=== PATIENT | female | born 1950 | race Caucasian/White ===

== ENCOUNTER 2016-04-22 18:56 | Emergency (ER) | payer OTHER ==
[2016-04-22 19:04] VITALS: PULSE 67; TEMP 98.6
[2016-04-22] MEDS ORDERED: ONDANSETRON 4 MG/2 ML VIAL IVP ONE (19:35)
[2016-04-22] MEDS ORDERED: NS 1,000 ML IV ONE ×2 (19:35→20:21)
[2016-04-22] MEDS ORDERED: METOCLOPRAMIDE 10 MG/2 ML VIAL IVP ONE (19:35)
[2016-04-22 19:40] LABS: % IMMATURE GRANULYOCYTES 0.3 % (0.0-1.1); ABSOLUTE IMMATURE GRANULOCYTES 0.03 10^3/uL (0.00-0.10); ADD DIFF? NO; ADD MORPH? NO; ADD SCAN? NO; ATYPICAL LYMPHOCYTE FLAG 0 (0-99); FRAGMENT RBC FLAG 0 (0-99); HEMATOCRIT 38.8 % (38.0-47.0); HEMOGLOBIN 14.4 g/dL (12.6-16.3); LEFT SHIFT FLG 0 (0-99); LIPEMIA HEMOLYSIS FLAG 90 (0-99); MEAN CELL HEMOGLOBIN 30.3 pg (27.9-34.1); MEAN CELL HEMOGLOBIN CONCENTR. 37.1 g/dL (32.4-36.7); MEAN CELL VOLUME 81.5 fL (81.5-99.8); PLATELET CLUMPS FLAG 10 (0-99); PLATELET COUNT 249 10^3/uL (150-400); RED BLOOD CELL COUNT 4.76 10^6/uL (4.18-5.33); RED CELL DISTRIBUTION WIDTH 12.5 % (11.5-15.2)
--- NOTE | 2016-04-22 19:41 | EDPHY ---
H & P Time Seen by Provider: 04/22/16 19:19 HPI/ROS: CHIEF COMPLAINT: Nausea vomiting HISTORY OF PRESENT ILLNESS: [Patient is a 65-year-old female who presents to the emergency department with extreme nausea and vomiting. Patient reports that she had dental surgery yesterday. She took the course of clindamycin for 45 days prior to the surgery. Yesterday she would underwent abscess treatment and was placed on doxycycline. She took 2 doses yesterday and 1 dose today. She has also been taking Ultram for pain. This morning at 10:00 a.m. she developed significant nausea vomiting. No hematemesis. No abdominal pain. No fevers or chills. No dysuria frequency. REVIEW OF SYSTEMS: My complete review of systems is negative except as mentioned in the HPI. Past Medical/Surgical History: Dental abscess, hyperparathyroidism, chronic fatigue syndrome Past surgical history: Dental abscess repair Smoking Status: Never smoked Physical Exam: Vitals noted GENERAL: Anxious. Appears to be in distress from nausea. Alert. HEENT: Eyes normal to inspection, normal pharynx, no signs of dehydration. Patient's oral wound is healing well. NECK: No thyromegaly, no lymphadenopathy, supple. RESPIRATORY: Clear to auscultation bilaterally, no rales, rhonchi or wheezing. CVS: Regular rate and rhythm, no rubs, murmurs, or gallops. ABDOMEN: Soft, nontender, nondistended, no organomegaly. BACK: Normal to inspection, no CVA tenderness. SKIN: Normal color, no rash, warm, dry. No pallor. EXTREMITIES: No pedal edema, no calf tenderness, no Homans sign or cords, no joint swelling. NEURO/PSYCH: Alert and oriented x3, normal mood and affect. Constitutional: Initial Vital Signs Temperature (C) 37 C 04/22/16 18:57 Heart Rate 67 04/22/16 18:57 Respiratory Rate 20 04/22/16 18:57 Blood Pressure 121/60 H 04/22/16 18:57 O2 Sat (%) 97 04/22/16 18:57 O2 Delivery Mode Room Air Allergies/Adverse Reactions: codeine Allergy (Verified 07/12/15 12:44) Home Medications: Medication Instructions Recorded Modafinil 07/12/15 Doxycycline Hyclate 04/22/16 Naproxen 01/05/17 Ondansetron Odt [Zofran Odt 4 mg 4 mg PO Q4PRN PRN #7 tab 04/22/16 (*)] Promethazine HCl [Phenergan 12.5mg 12.5 mg IL Q6 #7 suppr 04/22/16 supp (*)] traMADol 04/22/16 Medical Decision Making ED Course/Re-evaluation: I discussed the plan with the patient. She was concerned that the "medicine I got before completely knocked me out. I was high." I reviewed the previous record. She received zofran, gi cocktail, ativan and phenergan during her last visit. On recheck the patient was still nauseated. She is given Phenergan 12.5 mg IV. On recheck the patient stated her nausea had improved. She will be discharged with both Zofran and Phenergan p.r.. She was given warnings prior to leaving. She will return with worsening symptoms. She will continue her antibiotics as prescribed by her dentist. Differential Diagnosis: My differential includes but is not limited to nausea, vomiting, allergic reaction to medication, antibiotic reaction, dehydration, electrolyte abnormality, sugar abnormality - Data Points Laboratory Results: Laboratory Results 04/22/16 19:25 04/22/16 19:25 04/22/16 19:25 WBC 9.15 10^3/uL (3.80-9.50) RBC 4.76 10^6/uL (4.18-5.33) Hgb 14.4 g/dL (12.6-16.3) Hct 38.8 % (38.0-47.0) MCV 81.5 fL (81.5-99.8) MCH 30.3 pg (27.9-34.1) MCHC 37.1 H g/dL (32.4-36.7) RDW 12.5 % (11.5-15.2) Plt Count 249 10^3/uL (150-400) MPV 9.0 fL (8.7-11.7) Neut % (Auto) 79.9 H % (39.3-74.2) Lymph % (Auto) 14.0 L % (15.0-45.0) [place] % (Auto) 5.0 % (4.5-13.0) Eos % (Auto) 0.5 L % (0.6-7.6) Baso % (Auto) 0.3 % (0.3-1.7) Nucleat RBC Rel Count 0.0 % (0.0-0.2) Absolute Neuts (auto) 7.30 H 10^3/uL (1.70-6.50) Absolute Lymphs (auto) 1.28 10^3/uL (1.00-3.00) Absolute Monos (auto) 0.46 10^3/uL (0.30-0.80) Absolute Eos (auto) 0.05 10^3/uL (0.03-0.40) Absolute Basos (auto) 0.03 10^3/uL (0.02-0.10) Absolute Nucleated RBC 0.00 10^3/uL (0-0.01) Immature Gran % 0.3 % (0.0-1.1) Immature Gran # 0.03 10^3/uL (0.00-0.10) Sodium 129 L mEq/L (134-144) Potassium 4.3 mEq/L (3.5-5.2) Chloride 94 L mEq/L (97-110) Carbon Dioxide 23 mEq/l (22-31) Anion Gap 12 mEq/L (8-16) BUN 13 mg/dL (7-23) Creatinine 0.6 mg/dL (0.6-1.0) Estimated GFR > 60 Glucose 97 mg/dL (70-100) Calcium 9.9 mg/dL (8.5-10.4) Medications Given: Discontinued Medications Sodium Chloride (Ns) 1,000 mls @ 0 mls/hr IV ONCE ONE PRN Reason: Wide Open Stop: 04/22/16 19:36 Last Admin: 04/22/16 19:40 Dose: 1,000 mls Sodium Chloride (Ns) 1,000 mls @ 0 mls/hr IV ONCE ONE PRN Reason: Wide Open Stop: 04/22/16 20:22 Last Admin: 04/22/16 20:23 Dose: 1,000 mls Metoclopramide HCl (Reglan Injection) 10 mg IVP EDNOW ONE Stop: 04/22/16 19:36 Last Admin: 04/22/16 19:43 Dose: 10 mg Ondansetron HCl (Zofran) 4 mg IVP EDNOW ONE Stop: 04/22/16 19:36 Last Admin: 04/22/16 19:41 Dose: 4 mg Promethazine HCl (Phenergan Injection) 12.5 mg IVP ONCE ONE Stop: 04/22/16 20:23 Last Admin: 04/22/16 20:24 Dose: 12.5 mg Departure - Departure Disposition: Home, Routine, Self-Care Clinical Impression: Nausea & vomiting Qualifiers: Vomiting type: unspecified Vomiting Intractability: non-intractable Qualifier Code: (R11.2) Nausea with vomiting, unspecified Condition: Good Instructions: Acute Nausea and Vomiting (ED) Referrals: Blanca See [Primary Care Provider] - 3-4 days, if not improved Prescriptions: Promethazine HCl [Phenergan 12.5mg supp (*)] 12.5 mg IL Q6 #7 suppr Ondansetron Odt [Zofran Odt 4 mg (*)] 4 mg PO Q4PRN PRN #7 tab PRN Reason: For Nausea & Vomiting
[2016-04-22 19:51] LABS: ANION GAP 12 mEq/L (8-16); CALCIUM 9.9 mg/dL (8.5-10.4); CARBON DIOXIDE 23 mEq/l (22-31); CHLORIDE 94 mEq/L (97-110); CREATININE 0.6 mg/dL (0.6-1.0); GLOMERULAR FILTRATION RATE > 60; GLUCOSE 97 mg/dL (70-100); POTASSIUM 4.3 mEq/L (3.5-5.2); SODIUM 129 mEq/L (134-144)
[2016-04-22] MEDS ORDERED: PROMETHAZINE HCL 25 MG/ML VIAL IVP ONE (20:22)
[2016-04-22] MEDS ORDERED: ONDANSETRON 4MG PREPACK#2 BTL TAKEHOME ONE (22:17)
[2016-04-22 22:22] VITALS: BP 120/82; RESP 16; O2SAT 98
== END 2016-04-22 22:22 | disposition home or self-care (01) ==
DX: R11.2 Nausea with vomiting, unspecified (principal)
CPT/HCPCS: 96361; 96374; 96375; 99284; J2405; J2550; J2765

== ENCOUNTER → 2016-05-04 | Outpatient (CLI) | payer OTHER ==
--- NOTE | 2016-05-04 15:18 | NM ---
Nuclear Medicine Preoperative Sestamibi Injection Before Parathyroidectomy Clinical History: 65-year-old female presenting preoperatively before a parathyroidectomy. FINDINGS: 9.8 mCi of IV technetium 99m sestamibi were injected, and no images were acquired. The inje ction was requested by Dr. Naveed Koo prior to parathyroidectomy. IMPRESSION: Preoperative radiopharmaceutical injection prior to anticipated parathyroidectomy.
== END ==
LOC: FIMAGING 10:43
PROVIDERS: ATTEND Surgery
PROC: CW5B1ZZ Nonimaging Nuclear Medicine Probe of Head and Neck using Technetium 99m (Tc-99m) (ICD-10-PCS; principal; 2016-05-04)
DX: Z01.818 Encounter for other preprocedural examination (principal)
CPT/HCPCS: 78808; A9500

== ENCOUNTER → 2016-09-21 | Outpatient (CLI) | payer OTHER | LOC: FIMAGING 15:10 | PROVIDERS: ATTEND Family Medicine | DX: Z12.31 Encounter for screening mammogram for malignant neoplasm of breast (principal) | CPT/HCPCS: G0202 ==

== ENCOUNTER → 2016-09-30 | Outpatient (CLI) | payer OTHER | LOC: FIMAGING 15:00 | PROVIDERS: ATTEND Family Medicine | DX: R92.8 Other abnormal and inconclusive findings on diagnostic imaging of breast (principal) | CPT/HCPCS: 76641; G0206 ==

== ENCOUNTER → 2018-02-13 | Outpatient (CLI) | payer OTHER | LOC: BMCIMAGING 09:45 | PROVIDERS: ATTEND Family Medicine | DX: Z13.820 Encounter for screening for osteoporosis (principal); M81.0 Age-related osteoporosis without current pathological fracture; E03.9 Hypothyroidism, unspecified; Z79.890 Hormone replacement therapy ==

== ENCOUNTER → 2018-09-28 | Outpatient (CLI) | payer OTHER | LOC: EMCIMAGING 13:53 ==